=== PATIENT | female | born 1950 | race Caucasian/White ===

== ENCOUNTER 2016-03-26 09:29 | Day surgery (SDC) | payer MEDICARE, OTHER ==
[~2016-03-26] VITALS: Ht 147.3 cm; Wt 69.0 kg
[2016-03-26] VITALS (9 sets, daily range): BP systolic 101–131; BP diastolic 57–73; PULSE 54–66; RESP 14–18; Ht 147.3 cm; Wt 69.0 kg
[~2016-03-26 09:29] MED LIST: IBUP-1542 PO; IBUP400T22 PO; MELO-109 PO; PARO30TA48 PO; SIMV5TAB50 PO
[2016-03-26] MEDS ORDERED: BUPIVACAINE 0.5% (SDV) 30 ML INJ ONE ×2 (11:10→14:07)
[2016-03-26] MEDS ORDERED: LIDOCAINE 1% (MPF) 30 ML INJ ONE (11:10)
[2016-03-26] MEDS ORDERED: CEFAZOLIN 1 GM/50 ML (PMX) 50 ML IVPB SCH (12:00)
[2016-03-26] MEDS ORDERED: POLYMYXIN/BACITRACIN 1L IRRIG ONE (12:10)
[2016-03-26] MEDS ORDERED: LIDOCAINE 2% (MDV) 20 ML INJ ONE (12:10)
[2016-03-26] MEDS ORDERED: BUPIVACAINE 0.25% (MPF) 30 ML INJ ONE (12:10)
[2016-03-26] MEDS ORDERED: FENTAnyl 50 MCG/ML VIAL ONE (12:27)
[2016-03-26] MEDS ORDERED: MIDAZOLAM 1 MG/ML 2 ML INJ ONE (12:27)
[2016-03-26] MEDS ORDERED: CEFAZOLIN 1 GM INJ ONE (12:27)
[2016-03-26] MEDS ORDERED: PROPOFOL 20 ML ONE ×2 (12:27→13:26)
[2016-03-26] MEDS ORDERED: MEPERIDINE 25 MG INJ IV PRN (13:00)
[2016-03-26] MEDS ORDERED: FENTAnyl 50 MCG/ML VIAL IV PRN ×2 (13:00)
[2016-03-26] MEDS ORDERED: ONDANSETRON 4 MG INJ IV PRN (13:00)
[2016-03-26] MEDS ORDERED: DEXAMETHASONE 4 MG/ML 1 ML INJ ONE (14:07)
--- NOTE | 2016-03-26 17:32 | OPR ---
DATE OF OPERATION: 03/26/2016 Patient had surgery performed at [facility] outpatient surgery. SURGEON: Juliano Carver DPM COMBAT SYSTEMS ENGINEER: None. PREOPERATIVE DIAGNOSES: 1. Hallux valgus right foot. 2. Tailor's bunion, right foot. 3. Hammertoe, second digit right foot. POSTOPERATIVE DIAGNOSES: 1. Hallux valgus right foot. 2. Tailor's bunion, right foot. 3. Hammertoe, second digit right foot. OPERATION PERFORMED: Bunionectomy with osteotomy and fixation right foot, tailor's exostectomy, rig ht foot and hammertoe repair, second digit right foot. ANESTHESIA: MAC with local anesthesia. HEMOSTASIS: Pneumatic ankle tourniquet. ESTIMATED BLOOD LOSS: Minimal. MATERIALS USED: A 2-0 Vicryl suture, ____ Vicryl suture, 4-0 nylon suture, also 2.5 mm x 18 mm head less screw. In addition, use of a substitute bone matrix for a bone void. INJECTABLES: Include 10 mL of a 1:1 mixture of 2% lidocaine plain and 0.5% Marcaine plain. PROCEDURE IN DETAIL: Under mild sedation the patient was brought to the operating room and placed o n the operating table in supine position. Pneumatic ankle tourniquet was then placed about the mauro ent's right ankle. following both local and some mild sedation in addition to local anesthesia was obtained about the patient's right foot utilizing a total of about 10 mL of a 1:1 mixture of 0.5% Ma rcaine plain and 2% lidocaine plain. The right foot was scrubbed, prepped and draped in the usual a septic manner. An Esmarch bandage was used to exsanguinate the patient's right foot, pneumatic ankl e tourniquet was then inflated. Attention was directed towards the fifth MPJ of the right foot. A curvilinear incision was made overlying the fifth MPJ. The incision was deepened through subcutaneo us tissues with care being taken to identify and retract all vital neurovascular structures. Upon r eaching the head of the fifth metatarsal, the Sahni elevator was used to remove periosteal surfaces. Following this, a power oscillating saw was actually used to remove the head of the fifth metatarsal . It appeared at this particular time prior to the removal of the head that the fifth metatarsal wa s splayed laterally too much and the patient's bone quality did not serve for an osteotomy in the ar ea and therefore at this particular time, it was decided to remove the head of the fifth metatarsal which was extremely prominent on the lateral aspect of the foot. After removing the head of the fif th metatarsal, the area was copiously rasped with a reciprocating rasp and it was irrigated. The ca psular tissues were reapproximated and coapted using a 2-0 Vicryl suture. Subcutaneous tissues were reapproximated and coapted using a 4-0 Vicryl suture. The skin was then reapproximated and coapted using a 5-0 nylon suture. Attention was then directed towards the second digit of the right foot w here using a 15 blade, 2 semi-elliptical incisions were made overlying the proximal interphalangeal joint. The incisions were deepened through the subcutaneous tissues. The skin wedge was dissected free and passed from the operative site. Following identification of the proximal interphalangeal j oint, a transverse incision was made. The extensor tendon was reflected in order to expose the head of the proximal phalanx. The proximal phalanx was freed from its soft tissue attachments and expos ed. Using a power oscillating saw, the head of the proximal phalanx was removed and passed from the operative site. At this time, the second toe was in a more rectus position, but still slightly con tracted at the level of the MPJ. A small stab incision was made using a 15 blade at the level of th e MPJ. A tenotomy and capsulotomy was performed of the second MPJ of the right foot, which the toe was then noted to be in a rectus and more plantar flexed position. After I was happy with the corre ction of this, the area was copiously irrigated. The extensor tendon was reapproximated and coapted using a 4-0 Vicryl suture. The skin was then reapproximated and coapted using a 4-0 nylon suture. Attention was then directed towards the first MPJ of the right foot. A linear longitudinal incisio n was made overlying the bunion area. The incision was deepened to the subcutaneous tissues with ca re being taken to identify and retract all vital neural and vascular structures. Upon reaching the joint capsule, a linear capsulotomy was performed and the capsular tissues were exposed in order to expose the head of the first metatarsal. At this particular time, a very large medial eminence whic h also had irregularity to it was removed and passed from the operative site, creating a very flush medial portion of the head of the first metatarsal. At this particular time, dissection was carried into the first interspace where release of the adductor tendon was performed in order to allow the toe to sit in a more rectus position. The foot was then repositioned and using a marker, the osteot cristobal cuts were drawn out. Using a power oscillating saw, a Chevron osteotomy was performed of the he ad of the first metatarsal of the right foot. The capital fragment was then transposed laterally in to a more corrected position. At this particular time, it was noted that the bone was very soft and very spongy. There appeared to be a cystic area which was removed leaving a large deficit within the head of the first metatarsal. After movement of the capital fragment it was fixated temporaril y using a K-wire. At this particular time, a 2.5 mm x 18 mm screw was then placed across the osteot cristobal site. At this particular time, it was still noted that there was a cavernous area of the head o f the first metatarsal and a breakdown of the interior bony trabeculae. There was even an exposed p ortion of the screw that could be seen. At this particular time, it was decided that I would like t o use some additional bone putty or bone paste in order to secure the area. The bone paste was prep ared on the back table and using a forceps, was placed inside the cavernous area of the first metata rsal and along the medial eminence of the first metatarsal, creating a more flush ____ of the bone. At this particular time, the capsular tissues were then reapproximated and coapted using a 2-0 Vicr yl suture in a continuous running interlocking fashion. The subcutaneous tissues were then reapprox imated and coapted using a 4-0 Vicryl suture. The skin was then reapproximated and coapted using a 4-0 nylon suture. The second digit was injected with Decadron 2 mL and an additional 10 mL of 0.5% Marcaine plain was applied to the first MPJ as well as the fifth MPJ. The foot was dressed with Bet adine soaked Adaptic, Betadine soaked gauze, 4 x 4's, Tashi and Bernardo bandage. The tourniquet was rel eased prior to applying the bandages to make sure vascular refill was present in all toes which it w as. The patient tolerated the procedure and anesthesia well. She was transferred to the recovery r o with vital signs stable and vascular status intact. After a period of postoperative monitoring, the patient will be discharged home with the following written and oral instructions: 1. Rest, ice and elevate the right foot. 2. Keep dressing dry and intact. 3. Dispense surgical shoe. 4. Patient to be partial weightbearing with surgical shoe with weight on the heel. 5. Patient was given prescriptions for home already. 6. Patient has a followup appointment scheduled. I instructed the patient that she had poor bone quality that presented a problem during the surgery . The patient fully understands that she needs to be extremely careful with placing pressure on the heel and mid foot and not so much on the first MPJ. The area appears to be secure with osteotomy a nd fixation, but I want patient to be extra careful due to the placement of the bone putty in additi on to evidence of cavernous and poor bone quality of the first metatarsal head. Dictated By: JULIANO MICHAEL Conf#: [id number] DID#: [id number]
== END 2016-03-26 16:25 | disposition home or self-care (01) ==
LOC: SDS 09:29
PROVIDERS: ATTEND Podiatrist Foot & Ankle Surgery
DX: M20.11 Hallux valgus (acquired), right foot (principal); M21.621 Bunionette of right foot; M20.41 Other hammer toe(s) (acquired), right foot
CPT/HCPCS: 28110; 28285; 28292; C1713; J0690; J1100; J2175; J2250; J2405; J3010; L3260

== ENCOUNTER 2018-02-09 19:49 | Inpatient (IN) | END 2018-02-10 12:00 | disposition home or self-care (01) | DRG 872 ==

== ENCOUNTER 2018-07-04 16:34 | Emergency (ER) | payer MEDICARE, OTHER ==
[~2018-07-04] VITALS: Ht 157.5 cm; Wt 78.4 kg
[~2018-07-04 16:34] MED LIST changes: +ATOR40TA68 PO; +CIPR500T4 PO; -IBUP-1542 PO; -IBUP400T22 PO; +LEVO50TA7 PO; -MELO-109 PO; +MELO15TA30 PO; +OMEP20CA16 PO; -PARO30TA48 PO; +PARO40TA63 PO; +PRAM0.12 PO; -SIMV5TAB50 PO
[2018-07-04 17:39] VITALS: Ht 157.5 cm; Wt 78.4 kg
[2018-07-04] MEDS ORDERED: FAMO10TA84 PO (22:15)
--- NOTE | 2018-07-04 22:16 | ERD ---
ER Documentation Chief Complaint Chief Complaint cough x 1 month and back pain HPI 67-year-old female with history of depression, hyperlipidemia, lymphoma 1 year ago presents for cough x1 month. She is also complaining of upper back pain. She states that the cough is ongoing for about a year, worse in the last month. The cough is worse with eating. She denies nausea or vomiting. Denies chest pain or shortness of breath. Denies abdominal pain. Denies fever. Regarding history of lymphoma, patient gets care at an oncology clinic in [place]. She states that she is on chemotherapy and her last dose was 06/14/2017. She states that the cough was brought up to her oncologist and she was told that the cough will go away that it was due to the chemotherapy. She does have an appointment for follow-up with oncology in the next couple months. She has follow-up with her primary care physician for the cough and was given inhalers. ROS All systems reviewed and are negative except as per history of present illness. Medications Home Meds Active Scripts Famotidine* (Famotidine*) 10 Mg Tablet, 10 MG PO BID for gerd/cough, #60 TAB Prov:KALMARIA ESTHER 07/04/18 Ciprofloxacin Hcl* (Ciprofloxacin Hcl*) 500 Mg Tablet, 500 MG PO BID for 4 Days, #8 TAB Prov:STAR REVELES 02/10/18 Reported Medications Meloxicam* (Mobic*) 15 Mg Tablet, 15 MG PO DAILY, #30 TAB 02/09/18 Paroxetine Hcl* (Paxil*) 40 Mg Tablet, 40 MG PO HS, TAB 02/09/18 Pramipexole* (Pramipexole*) 0.125 Mg Tablet, 0.125 MG PO HS, TAB 02/09/18 Omeprazole* (Omeprazole*) 20 Mg Capsule.dr, 20 MG PO DAILY, #30 CAP 02/09/18 Levothyroxine Sodium* (Levothyroxine Sodium*) 50 Mcg Tablet, 50 MCG PO BEFORE BREAKFAST, #30 TAB 02/09/18 Atorvastatin* (Atorvastatin*) 40 Mg Tablet, 40 MG PO QHS, #30 TAB 02/09/18 Allergies Allergies: Coded Allergies: gabapentin (Unverified Allergy, Unknown, NAUSEA AND VOMITING, HEADACHE, 02/09/18) morphine (Verified Allergy, Unknown, palpitation, DIFFICULTY OF BREATHING, 02/09/18) PMhx/Soc History of Surgery: Yes (RT KNEE REPLACEMENT 2015,ARGENIS EYE SURGERY 2015) Anesthesia Reaction: No Hx Neurological Disorder: No Hx Respiratory Disorders: No Hx Cardiac Disorders: No Hx Psychiatric Problems: Yes (DEPRESSION) Hx Miscellaneous Medical Probl: Yes (LYMPHOMA NOV 2016 LAST CHEMO MAY 2017 CURRENTLY ON REMISSION ) Hx Alcohol Use: No Hx Substance Use: No Hx Tobacco Use: No Smoking Status: Never smoker FmHx Family History: No coronary disease Physical Exam Vitals Vital Signs Date Temp Pulse Resp B/P (MAP) Pulse Ox O2 O2 Flow FiO2 Time Delivery Rate 07/04/18 97.6 90 20 152/77 98 17:39 (102) Physical Exam Const: No acute distress Head: Atraumatic Eyes: Normal Conjunctiva ENT: Normal External Ears, Nose and Mouth. Neck: Full range of motion. No meningismus. Resp: Clear to auscultation bilaterally, no wheezing noted Cardio: Regular rate and rhythm, no murmurs Abd: Soft, non tender, non distended. Normal bowel sounds Skin: No petechiae or rashes Back: No midline or flank tenderness Ext: No cyanosis, or edema Neur: Awake and alert Psych: Normal Mood and Affect Results 24 hrs Laboratory Tests Test 07/04/18 21:02 White Blood Count 5.0 10^3/ul Red Blood Count 4.34 10^6/ul Hemoglobin 12.3 g/dl Hematocrit 37.8 % Mean Corpuscular Volume 87.1 fl Mean Corpuscular Hemoglobin 28.3 pg Mean Corpuscular Hemoglobin Concent 32.5 g/dl Red Cell Distribution Width 14.9 % Platelet Count 330 10^3/UL Mean Platelet Volume 9.3 fl Immature Granulocytes % 0.600 % Neutrophils % 40.7 % Lymphocytes % 39.7 % Monocytes % 11.8 % Eosinophils % 6.4 % Basophils % 0.8 % Nucleated Red Blood Cells % 0.0 /100WBC Immature Granulocytes # 0.030 10^3/ul Neutrophils # 2.0 10^3/ul Lymphocytes # 2.0 10^3/ul Monocytes # 0.6 10^3/ul Eosinophils # 0.3 10^3/ul Basophils # 0.0 10^3/ul Nucleated Red Blood Cells # 0.0 10^3/ul Sodium Level 143 mmol/L Potassium Level 3.8 mmol/L Chloride Level 107 mmol/L Carbon Dioxide Level 27 mmol/L Anion Gap 9 Blood Urea Nitrogen 14 mg/dl Creatinine 0.55 mg/dl Est Glomerular Filtrat Rate mL/min > 60 mL/min Glucose Level 100 mg/dl Calcium Level 9.0 mg/dl Total Bilirubin 0.5 mg/dl Direct Bilirubin 0.00 mg/dl Indirect Bilirubin 0.5 mg/dl Aspartate Amino Transf (AST/SGOT) 34 IU/L Alanine Aminotransferase (ALT/SGPT) 34 IU/L Alkaline Phosphatase 110 IU/L Total Protein 7.4 g/dl Albumin 4.4 g/dl Globulin 3.00 g/dl Albumin/Globulin Ratio 1.46 Procedures/MDM Medical Decision Making: Differential diagnosis includes but not limited to upper respiratory infection, pneumonia, sepsis, meningitis, influenza, GERD, postnasal drip. Patient appeared well on physical examination, nontoxic appearing. Lungs were clear to auscultation bilaterally. There is low suspicion for pneumonia, sepsis, meningitis. Chest X-ray 1V Interpreted by me: Soft Tissue: No acute abnormalities Bones: No acute abnormalities Mediastinum/Cardiac Silhouette/Lungs: No acute abnormalities CBC: no e/o of systemic infection or severe anemia CMP: no e/o severe acidosis, alkalosis, renal failure, diabetic ketoacidosis, liver disease Discussed with patient that she has chronic cough and given she has worsening cough with eating, there is possibility that she may have GERD Patient given prescription for supportive medication(s), pepcid. Patient advised to follow up with PCP in 1-2 days. Patient advised to return to ED for new or worsening symptoms. Patient stable on discharge from the ED. Disclaimer: Inadvertent spelling and grammatical errors are likely due to EHR/dictation software use and do not reflect on the overall quality of patient care. Also, please note that the electronic time recorded on this note does not necessarily reflect the actual time of the patient encounter. Departure Diagnosis: Primary Impression: Cough Condition: Fair Patient Instructions: Cough, Chronic, Uncertain Cause, (Adult) Referrals: COMMUNITY CLINICS YOU HAVE RECEIVED A MEDICAL SCREENING EXAM AND THE RESULTS INDICATE THAT YOU DO NOT HAVE A CONDITION THAT REQUIRES URGENT TREATMENT IN THE EMERGENCY DEPARTMENT. FURTHER EVALUATION AND TREATMENT OF YOUR CONDITION CAN WAIT UNTIL YOU ARE SEEN IN YOUR DOCTORS OFFICE WITHIN THE NEXT 1-2 DAYS. IT IS YOUR RESPONSIBILITY TO MAKE AN APPOINTMENT FOR FOLOW-UP CARE. IF YOU HAVE A PRIMARY DOCTOR --you should call your primary doctor and schedule an appointment IF YOU DO NOT HAVE A PRIMARY DOCTOR YOU CAN CALL OUR PHYSICIAN REFERRAL HOTLINE AT IF YOU CAN NOT AFFORD TO SEE A PHYSICIAN YOU CAN CHOSE FROM THE FOLLOWING [facility] [address] [facility] [address] [facility] [facility] [address] [facility] [address] [facility]. [facility] [address] [facility]. [facility]. [address] Additional Instructions: Llame al doctor MAANA y bryan monico NAHUM PARA DENTRO DE 1-2 BALLARD.Dgale a la secretaria que nosotros le instruimos hacer esta nahum.Avise o llame si early condi jason se empeora antes de la nahum. Regresa aqui si peor o no mejor. MARIA ESTHER BOWDEN DO July 04, 2018 22:16
[2018-07-04 22:25] VITALS: BP 148/78; PULSE 78; RESP 22
== END 2018-07-04 22:26 | disposition home or self-care (01) ==
LOC: FTE 16:34
DX: R05 Cough (principal)
CPT/HCPCS: 71046; 80053; 85025